=== PATIENT | female | born 1990 | race Two or more races ===

== ENCOUNTER 2018-07-07 16:07 | Emergency (ER) | payer MEDICAID ==
[~2018-07-07] VITALS: Ht 134.6 cm; Wt 84.4 kg
[2018-07-07 17:01] VITALS: BP 132/80
== END 2018-07-07 18:14 | disposition home or self-care (01) ==
LOC: ER 16:12
DX: S29.011A Strain of muscle and tendon of front wall of thorax, initial encounter (principal); S39.012A Strain of muscle, fascia and tendon of lower back, initial encounter; M62.830 Muscle spasm of back; V49.49XA Driver injured in collision with other motor vehicles in traffic accident, initial encounter; Y93.89 Activity, other specified; Y99.8 Other external cause status; Y92.488 Other paved roadways as the place of occurrence of the external cause
CPT/HCPCS: 71046; 72100; 93005

== ENCOUNTER 2020-12-30 20:35 | Emergency (ER) | payer MEDICAID ==
[~2020-12-30] VITALS: Ht 165.1 cm; Wt 81.6 kg
[2020-12-31 03:00] VITALS: BP 118/79
[2020-12-31] MEDS ORDERED: ONDANSETRON ODT 4 MG TAB PO ONE (04:30)
[2020-12-31] MEDS ORDERED: HYDROcodone-ACET 10/325MG TAB PO ONE (04:30)
== END 2020-12-31 04:34 | disposition home or self-care (01) ==
LOC: ER 20:35
DX: S16.1XXA Strain of muscle, fascia and tendon at neck level, initial encounter (principal); S46.912A Strain of unspecified muscle, fascia and tendon at shoulder and upper arm level, left arm, initial encounter; V43.52XA Car driver injured in collision with other type car in traffic accident, initial encounter; Y93.89 Activity, other specified; Y92.410 Unspecified street and highway as the place of occurrence of the external cause; Y99.8 Other external cause status
CPT/HCPCS: 72125; 73030; 81025; 99285; Q0162